=== PATIENT | male | born 1950 | race Hispanic/Latino ===

== ENCOUNTER 2021-07-30 10:51 | Day surgery (SDC) | payer MEDICARE ==
[2021-07-29 15:37] LABS: BASOPHILS % (AUTO) 0.7 % (0.0-5.0); EOSINOPHILS % (AUTO) 0.7 % (0.0-8.0); HEMATOCRIT 42.8 % (42-54); LYMPHOCYTES % (AUTO) 24.7 % (21.0-51.0); MEAN CORPUSCULAR HEMOGLOBIN 30.9 pg (27.0-33.0); MEAN CORPUSCULAR HGB CONC 32.5 g/dL (32.0-36.0); MEAN CORPUSCULAR VOLUME 95.1 fL (79-99); MONOCYTES % (AUTO) 12.6 % (3.0-13.0); PLATELET COUNT (AUTO) 256 K/uL (130-400); RED CELL DISTRIBUTION WIDTH 13.8 % (11.0-15.5); WHITE BLOOD COUNT (AUTO) 6.8 K/uL (4.8-10.8)
[2021-07-29 15:49] LABS: INR 0.99 (0.85-1.15); PROTHROMBIN TIME 10.8 SEC (9.6-11.6)
[2021-07-29 16:01] LABS: ALBUMIN 3.7 g/dL (3.5-5.0); BILIRUBIN,TOTAL 0.2 mg/dL (0.2-1.0); CREATININE 1.1 mg/dL (0.5-1.5); POTASSIUM 4.6 mmol/L (3.5-5.1); TOTAL PROTEIN, SERUM 7.3 g/dL (6.0-8.3)
[2021-07-29 16:57] VITALS: BP 118/65
[~2021-07-30] VITALS: Ht 162.6 cm; Wt 63.5 kg
[2021-07-30] VITALS (14 sets, daily range): BP systolic 106–172; BP diastolic 59–73
[~2021-07-30 10:51] MED LIST: ACET-2743 PO; CARB200T6 PO
[2021-07-30] MEDS: CEFAZOLIN SODIUM 1 GM VIAL IVP SCH ×2 (11:00→14:25)
[2021-07-30] MEDS ORDERED: LACTATED RINGERS 1000ML 1,000 ML IV ONE (11:10)
[2021-07-30] MEDS ORDERED: LISI10TA24 PO (12:39)
[2021-07-30] MEDS ORDERED: ATOR10 PO (12:39)
[2021-07-30] MEDS ORDERED: GABA300S PO (12:39)
[2021-07-30] MEDS ORDERED: FENTANYL CITRATE PF 50 MCG/1 ML 2ML VIAL ONE (13:59)
[2021-07-30] MEDS ORDERED: ROCURONIUM 10MG/1ML SYR 10 MG/ML ML ONE (13:59)
[2021-07-30] MEDS ORDERED: LIDOCAINE PF 100MG/5ML (2%) SYRINGE 5ML ONE (13:59)
[2021-07-30] MEDS ORDERED: MIDAZOLAM HCL 1 MG/ML 2ML VIAL ONE (13:59)
[2021-07-30] MEDS ORDERED: PROPOFOL 10 MG/ML 20ML VIAL IV ONE (13:59)
[2021-07-30] MEDS ORDERED: LIDOCAINE 1%-EPI 1:100,000 20 ML VIAL IJ SCH (14:00)
[2021-07-30] MEDS ORDERED: OXYMETAZOLINE HCL SPRAY 15 ML BOTTLE ONE (14:25)
[2021-07-30] MEDS ORDERED: GLYCOPYRROLATE 1 MG/5 ML SYRINGE ONE (14:58)
[2021-07-30] MEDS ORDERED: NEOSTIGMINE 5MG/5ML SYR IV ONE (14:58)
== END 2021-07-30 16:30 | disposition home or self-care (01) ==
LOC: DAH 10:51
PROVIDERS: ATTEND Otolaryngology Plastic Surgery within the Head & Neck
DX: J34.89 Other specified disorders of nose and nasal sinuses (principal); D18.09 Hemangioma of other sites; Z20.822 Contact with and (suspected) exposure to COVID-19; Z85.828 Personal history of other malignant neoplasm of skin; Z79.01 Long term (current) use of anticoagulants
CPT/HCPCS: 11441; 36415; 71045; 80053; 85025; 85610; 87635; 93005; A4213; A4215; A4216; A4221; A4222; A4223 ×2; A4663; A4930 ×2; A6260; C9803; J0690; J2001; J2250; J2704; J2710; J3010; J3490 ×2; J7120